=== PATIENT | male | born 1960 | race African-American/Black ===

== ENCOUNTER 2019-01-04 16:10 | Emergency (ER) | payer OTHER ==
[~2019-01-04] VITALS: Ht 185.4 cm; Wt 80.0 kg
[2019-01-04] MEDS ORDERED: LIDOCAINE HCL/PF 1% 10 MG/ML 5ML VIAL IJ ONE (21:30)
[2019-01-04] MEDS ORDERED: BACITRACIN ZINC OINT UDPKT TOP ONE (21:30)
[2019-01-04] MEDS ORDERED: HYDROCODONE/ACETAMINOPHEN 5/325MG TABLET PO ONE (21:30)
[2019-01-05] VITALS: BP 127/83
== END 2019-01-05 00:06 | disposition home or self-care (01) ==
LOC: ER 16:10
DX: S61.214A Laceration without foreign body of right ring finger without damage to nail, initial encounter (principal); J45.909 Unspecified asthma, uncomplicated; W45.8XXA Other foreign body or object entering through skin, initial encounter; Y93.89 Activity, other specified; Y92.89 Other specified places as the place of occurrence of the external cause; Y99.8 Other external cause status; Z91.010 Allergy to peanuts
CPT/HCPCS: 12002; 99283; J3490; Z7610